=== PATIENT | female | born 1975 | race Caucasian/White ===

== ENCOUNTER 2020-09-09 14:27 | Emergency (ER) | payer OTHER, SELFPAY ==
[2020-09-09] VITALS (10 sets, daily range): BP systolic 125–171; BP diastolic 97–120; PULSE 100–117; RESP 16–20; TEMP 36.6; O2SAT 97–99; BMI 28.1
--- NOTE | 2020-09-09 14:29 | PC.NURSE ---
Calling poison control
--- NOTE | 2020-09-09 14:35 | PC.NURSE ---
Spoke with Jocelynn from poison control who advised that it could cause QT prolong and that we should obtain an EKG and an alcohol level since pt admits to drinking, and observe her.
--- NOTE | 2020-09-09 14:36 | XR_ITS ---
PROCEDURE: XR CHEST PORTABLE CLINICAL HISTORY: soa COMPARISON: No exams were available for comparison FINDINGS: This is a somewhat poor inspiration. There is minimal right basilar atelectasis. The lung bledsoe are clear of infiltrate. There is mild generalized cardiomegaly however there is no pulmonary congestion and there is no pleural fluid. IMPRESSION: Poor inspiration, minimal right basilar atelectasis noted Dictated by: Dr. Perry Cheng MD 09/09/2020 15:47 Dr. Perry Cheng MD in [place] 09/09/2020 15:47
--- NOTE | 2020-09-09 14:38 | [facility].EDGENADL ---
ED Disposition Clinical Impression: Overdose Qualifiers: Encounter type: initial encounter Injury intent: undetermined intent Qualified Code(s): T50.904A - Poisoning by unspecified drugs, medicaments and biological substances, undetermined, initial encounter Alcohol intoxication Qualifiers: Complication of substance-induced condition: uncomplicated Qualified Code(s): F10.920 - Alcohol use, unspecified with intoxication, uncomplicated Disposition: Home, Self-Care Condition on Discharge: Good Additional Instructions: Return to the emergency department if any change in condition. Follow-up with Lenore Valverde, behavioral medicine. Referrals: PCP,No [Non-Staff] - Lenore Valverde, [facility] [Nurse Practitioner] - - Critical Care Critical Care Time: No Attestation: On , the high probability of a clinically significant, sudden or life threatening deterioration of the following system(s) required my full and direct attention, intervention and personal management. The time I documented below is in addition to time spent performing reported procedures but includes the following listed in this critical care notation. Medical Decision Making - Steffen Inquiry Pt receiving controlled substance: No Vital Signs: 09/09/20 14:28 09/09/20 15:13 09/09/20 15:32 Temperature 98 F Temperature Source Oral Pulse Rate [Radial] 117 H 113 H 110 H Respiratory Rate 20 18 20 Blood Pressure [Right Arm] 159/115 H 162/120 H 146/100 H Blood Pressure Mean [Right Arm] 129 134 115 Blood Pressure Position [Right Arm] Sitting 02 Sat by Pulse Oximetry 98 97 97 Oxygen Delivery Method Room Air Room Air Nasal Cannula Oxygen Flow Rate (LPM) 3 09/09/20 15:56 09/09/20 16:23 09/09/20 16:49 Temperature Temperature Source Pulse Rate [Radial] 102 H 105 H 109 H Respiratory Rate 20 18 20 Blood Pressure [Right Arm] 134/99 H 125/97 H 141/97 H Blood Pressure Mean [Right Arm] 110 106 111 Blood Pressure Position [Right Arm] 02 Sat by Pulse Oximetry 97 97 98 Oxygen Delivery Method Nasal Cannula Nasal Cannula Nasal Cannula Oxygen Flow Rate (LPM) 3 3 3 09/09/20 17:19 09/09/20 17:43 Temperature Temperature Source Pulse Rate [Radial] 104 H 104 H Respiratory Rate 18 20 Blood Pressure [Right Arm] 171/118 H 156/113 H Blood Pressure Mean [Right Arm] 135 127 Blood Pressure Position [Right Arm] 02 Sat by Pulse Oximetry 97 99 Oxygen Delivery Method Nasal Cannula Nasal Cannula Oxygen Flow Rate (LPM) 3 3 - Lab Data Lab Results 09/09/20 14:25: WBC 3.0 L, RBC 4.58, Hgb 15.8, Hct 47.1 H, MCV 102.8 H, MCH 34.4 H, MCHC 33.5, RDW 13.3, Plt Count 217, MPV 7.5, Neut % (Auto) 51.7, Lymph % (Auto) 36.7, Morton % (Auto) 4.5, Eos % (Auto) 5.2, Baso % (Auto) 1.8, Neut # (Auto) 1.6 L, Lymph # (Auto) 1.1, Morton # (Auto) 0.1, Eos # (Auto) 0.2, Baso # (Auto) 0.1 09/09/20 14:25: Sodium 141, Potassium 3.8, Chloride 104, Carbon Dioxide 28, Anion Gap 12.8, BUN 10, Creatinine 0.50 L, Estimated Creat Clear 186, Estimated GFR 133, Est GFR ( Amer) 161, Glucose 144 H, Calcium 8.9, Total Bilirubin 0.3, AST 63 H, ALT 43, Alkaline Phosphatase 104, Total Protein 7.7, Albumin 4.3, Globulin 3.4 H, Albumin/Globulin Ratio 1.3, Salicylates < 1.0 L, Acetaminophen < 10 L 09/09/20 14:25: Plasma/Serum Alcohol 157 H 09/09/20 17:10: Urine Opiates Screen Negative, Urine Methadone Screen Negative, Ur Barbituates Screen Negative, Ur Phencyclidine Scrn Negative, Ur Amphetamines Screen Negative, U Benzodiazepines Scrn Negative, Urine Cocaine Screen Negative, U Marijuana (THC) Screen Negative Result diagrams: 09/09/20 14:25 09/09/20 14:25 Orders (Tests/Meds): ED MEDICATIONS Generic Name Dose Route Start Last Admin Trade Name Freq PRN Reason Stop Dose Admin Lisinopril 20 mg 09/10/20 17:54 Lisinopril 20mg Tablet PO 09/10/20 17:55 ONCE ONE Lisinopril 20 mg 09/09/20 18:00 09/09/20 18:01 Lisinopril 10mg Tablet PO 10/09/20 17:59 20 mg DAILY SHANDA Adminis
[2020-09-09 14:43] LABS: Basophils # 0.1 K/mm3 (0-0.2); Basophils % 1.8 % (0.1-2.0); Eosinophils # 0.2 K/mm3 (0.0-0.4); Eosinophils % 5.2 % (0.1-12.0); Hematocrit 47.1 % (37.0-47.0); Hemoglobin 15.8 g/dL (12.2-16.2); Lymphocytes # 1.1 K/mm3 (0.7-4.5); Lymphocytes % 36.7 % (10-50); Mean Corpuscular HGB Conc 33.5 g/dL (31.8-35.4); Mean Corpuscular Hemoglobin 34.4 pg (27.0-31.2); Mean Corpuscular Volume 102.8 fl (81-99); Mean Platelet Volume 7.5 fl (7.4-10.4); Monocytes # 0.1 K/mm3 (0.1-1.0); Monocytes % 4.5 % (1.7-9.3); Neutrophils # 1.6 K/mm3 (1.8-7.8); Neutrophils % 51.7 % (37.0-80.0); Platelet Count 217 K/mm3 (142-424); Red Blood Count 4.58 M/mm3 (4.20-5.40); Red Cell Distribution Width 13.3 % (11.5-17.5)
[2020-09-09 14:49] LABS: Alanine Aminotransferase 43 U/L (12-78); Albumin Level 4.3 g/dl (3.5-5.0); Albumin/Globulin Ratio 1.3 (1.1-1.8); Alkaline Phosphatase 104 U/L (38-126); Anion Gap 12.8 mEq/L (5-15); Aspartate Amino Transferase 63 U/L (14-36); Bilirubin,Total 0.3 mg/dl (0.2-1.3); Blood Urea Nitrogen 10 mg/dl (7-17); Calcium 8.9 mg/dl (8.4-10.2); Carbon Dioxide 28 mmol/L (22.0-30.0); Chloride 104 mmol/L (98-107); Creatinine Clearance Estimated 186 mL/min (50-200); Estimated Glomerular Filt Rate 133 ml/min (>60); GFR (African American) 161 ML/MIN (>60); Globulin 3.4 g/dL (1.3-3.2); Glucose 144 mg/dl (74-100); Potassium 3.8 mmoL/L (3.5-5.1); Sodium 141 mmol/L (136-145); Total Protein,Serum 7.7 g/dl (6.3-8.2)
[2020-09-09 14:50] LABS: Ethyl Alcohol 157 mg/dl (0-10)
[2020-09-09 14:54] LABS: Acetaminophen < 10 ug/ml (10-30); Salicylate < 1.0 mg/dL (2.0-20.0)
--- NOTE | 2020-09-09 15:01 | ECG_ITS ---
APPROVED REPORT Exam: Resting ECG HR:117 bpm ECG Measurements Heart Rate 117 AXES IN 164 P 30 QRSd 84 QRS -17 QT 332 T 10 QTc 463 Conclusion Sinus tachycardia Left atriral abnormality Left ventricular hypertrophy Abnormal ECG Electronically signed by : Dago Prince, 09/10/2020 17:41:22
--- NOTE | 2020-09-09 15:49 | PC.NURSE ---
pt given ice chips
--- NOTE | 2020-09-09 16:24 | PC.NURSE ---
pt here with pt.
[2020-09-09 17:25] LABS: Amphetamine/Metha Screen,Urine Negative ng/ml (<1000)
[2020-09-09 17:26] LABS: Barbiturates Screen,Urine Negative ng/ml (<200)
[2020-09-09 17:27] LABS: Benzodiazepines Screen,Urine Negative ng/ml (<200); Cannabinoid Screen,Urine Negative ng/ml (<50)
[2020-09-09 17:28] LABS: Cocaine Screen,Urine Negative ng/ml (<300); Methadone Screen,Urine Negative ng/ml (<300)
[2020-09-09 17:29] LABS: Opiate Screen,Urine Negative ng/ml (<300)
[2020-09-09 17:30] LABS: Phencyclidine Screen,Urine Negative ng/ml (<25)
== END 2020-09-09 18:14 | disposition home or self-care (01) ==
PROVIDERS: Emergency Provider Emergency Medicine; PCP Family Medicine
DX: T45.0X1A Poisoning by antiallergic and antiemetic drugs, accidental (unintentional), initial encounter (principal); T51.0X1A Toxic effect of ethanol, accidental (unintentional), initial encounter; F10.229 Alcohol dependence with intoxication, unspecified; Y92.019 Unspecified place in single-family (private) house as the place of occurrence of the external cause; F17.210 Nicotine dependence, cigarettes, uncomplicated; I10 Essential (primary) hypertension; Z79.899 Other long term (current) drug therapy
CPT/HCPCS: 71045; 80053; 80305; 80329; 85025; 93005; 99284